=== PATIENT | female | born 1975 | race American Indian/Alaskan Native ===

== ENCOUNTER 2021-07-29 02:39 | Emergency (ER) | payer OTHER ==
[2021-07-29 02:47] VITALS: BP 104/67
[2021-07-29] MEDS ORDERED: KETOROLAC 60 MG/2 ML INJ IM ONE (03:43)
--- NOTE | 2021-07-29 03:47 | Emergency Department Report ---
ED Extremity Problem HPI - General Chief complaint: Extremity Injury, Lower Stated complaint: FOOT PAIN Source: patient Mode of arrival: Ambulatory Limitations: No Limitations - History of Present Illness Initial comments: 45-year-old female presents to the ED complaining of bilateral feet pain x 2 weeks . Patient states that she feels like she has a [id number] in her feet with pruritus . Patient states taking Benadryl ikup-wpa-[id number] with relief. Patient states prolonged standing on her feet. Patient ambulatory without end up with. No obvious deformity noted. No distracting injury noted. Patient denies any trauma. MD Complaint: extremity pain Onset/Timin -: week(s) History of Same: Yes Severity scale (0 -10): 6 Associated Symptoms: denies other symptoms - Related Data Previous Rx's Medication Instructions Recorded Last Taken Type Naproxen [Naprosyn] 500 mg PO BID 15 Days #30 tablet 07/29/21 Unknown Rx hydrOXYzine PAMOATE [Vistaril] 50 mg PO Q6HR PRN 15 Days #30 07/29/21 Unknown Rx capsule Allergies Allergy/AdvReac Type Severity Reaction Status Date / Time No Known Allergies Allergy Verified 07/29/21 02:42 ED Review of Systems ROS: Stated complaint: FOOT PAIN Other details as noted in HPI Constitutional: denies: chills, fever Eyes: denies: eye pain, eye discharge, vision change ENT: denies: ear pain, throat pain Respiratory: denies: cough, shortness of breath, wheezing Cardiovascular: denies: chest pain, palpitations Endocrine: no symptoms reported Gastrointestinal: denies: abdominal pain, nausea, diarrhea Genitourinary: denies: urgency, dysuria, discharge Musculoskeletal: denies: back pain, joint swelling, arthralgia Skin: denies: rash, lesions Neurological: denies: headache, weakness, paresthesias Psychiatric: denies: anxiety, depression Hematological/Lymphatic: denies: easy bleeding, easy bruising ED Past Medical Hx - Past Medical History Hx Asthma: Yes - Surgical History Past Surgical History?: Yes Additional Surgical History: brain surgery 2020 - Medications Home Medications: Home Medications Medication Instructions Recorded Confirmed Last Taken Type Naproxen [Naprosyn] 500 mg PO BID 15 Days #30 tablet 07/29/21 Unknown Rx hydrOXYzine PAMOATE [Vistaril] 50 mg PO Q6HR PRN 15 Days #30 07/29/21 Unknown Rx capsule ED Physical Exam - General Limitations: No Limitations General appearance: alert, in no apparent distress - Head Head exam: Present: atraumatic, normocephalic - Eye Eye exam: Present: normal appearance - ENT ENT exam: Present: mucous membranes moist - Neck Neck exam: Present: normal inspection - Respiratory Respiratory exam: Present: normal lung sounds bilaterally. Absent: respiratory distress - Cardiovascular Cardiovascular Exam: Present: regular rate, normal rhythm. Absent: systolic murmur, diastolic murmur, rubs, gallop - GI/Abdominal GI/Abdominal exam: Present: soft, normal bowel sounds - Extremities Exam Extremities exam: Present: normal inspection - Back Exam Back exam: Present: normal inspection - Neurological Exam Neurological exam: Present: alert, oriented X3 - Psychiatric Psychiatric exam: Present: normal affect, normal mood - Skin Skin exam: Present: warm, dry, intact, normal color, rash ED Course Vital Signs 07/29/21 02:46 Temperature 98.5 F Pulse Rate 100 H Respiratory 18 Rate Blood Pressure 104/67 O2 Sat by Pulse 97 Oximetry ED Medical Decision Making - Medical Decision Making 45-year-old female presents to the ED complaining of bilateral feet pain x 2 weeks . Patient states that she feels like she has a [id number] in her feet with intense pruritus . Patient states taking Benadryl [id number] with relief. Patient states prolonged standing on her feet. Patient ambulatory without end up with. No obvious deformity noted. No distracting injury noted. Patient denies any trauma. Patient has wheals noted on bilateral. Discharge plan discussed with patient to follow-up with PCP and return back to [facility]. Patient verbalized understanding Critical care attestation.: If time is entered above; I have spent that time in minutes in the direct care of this critically ill patient, excluding procedure time. ED Disposition Clinical Impression: Bilateral foot pain, Rash and other nonspecific skin eruption Disposition: HOME / SELF CARE / HOMELESS Is pt being admited?: No Does the pt Need Aspirin: No Condition: Stable Instructions: Rash, Adult, How to Use Cold Therapy, [place]-by-Muro, Pain Without a Known Cause Additional Instructions: Follow-up with your primary care doctor Return to the ED for any worsening symptoms Take prescription has prescribed Prescriptions: Naproxen [Naprosyn] 500 mg PO BID 15 Days #30 tablet hydrOXYzine PAMOATE [Vistaril] 50 mg PO Q6HR PRN 15 Days #30 capsule PRN Reason: Itching Referrals: LILIA KNIGHT MD [Staff Physician] - 3-5 Days
[2021-07-29] MEDS ORDERED: diphenhydrAMINE 50 MG/ML VIAL IM ONE (03:48)
== END 2021-07-29 04:46 | disposition home or self-care (01) ==
LOC: ED 02:39
DX: M79.671 Pain in right foot (principal); M79.672 Pain in left foot; R21 Rash and other nonspecific skin eruption; J45.909 Unspecified asthma, uncomplicated; Z79.899 Other long term (current) drug therapy; Z98.890 Other specified postprocedural states
CPT/HCPCS: 96372; 99282; J1200; J1885